=== PATIENT | female | born 1995 | race Hispanic/Latino ===

== ENCOUNTER 2022-02-01 11:18 | Outpatient (CLI) | payer BC ==
[2022-02-02 16:08] LABS: SARS-CoV-2 PCR by NAA Not Detected (NotDetected)
== END 2022-02-01 11:19 | disposition home or self-care (01) ==
LOC: CSHLAB 11:18
PROVIDERS: ATTEND Student in an Organized Health Care Education/Training Program
DX: Z20.822 Contact with and (suspected) exposure to COVID-19 (principal)
CPT/HCPCS: U0003; U0005

== ENCOUNTER 2022-02-05 05:55 | Inpatient (IN) | payer BC ==
[2022-02-05] MEDS ORDERED: NS w/ Oxytocin 30 units 500 ML IV SCH ×2 (05:58)
[2022-02-05] MEDS ORDERED: Butorphanol Tartrate 1 MG/ML VIAL SLOW IVP PRN (05:58)
[2022-02-05] MEDS ORDERED: HYDROcodone/Acetaminophen 5/325 mg Tablet PO PRN ×3 (05:58→15:10)
[2022-02-05] MEDS ORDERED: Lidocaine 1% (PF) 30 ML VIAL SC PRN (05:58)
[2022-02-05] MEDS ORDERED: Acetaminophen 500 MG TAB PO PRN (05:58)
[2022-02-05] MEDS ORDERED: Methylergonovine 0.2 MG/ML VIAL IM PRN (05:58)
[2022-02-05] MEDS ORDERED: Carboprost 250 MCG/ML AMP IM PRN (05:58)
[2022-02-05] MEDS ORDERED: Misoprostol 200 MCG TAB PR PRN (05:58)
[2022-02-05] MEDS ORDERED: Promethazine HCl 25 MG/ML VIAL IM PRN ×3 (05:58→15:10)
[2022-02-05] MEDS ORDERED: Ondansetron PF 4 MG/2 ML Vial IVP PRN ×3 (05:58→15:10)
[2022-02-05] MEDS ORDERED: Ibuprofen 800 MG TAB PO PRN (05:58)
[2022-02-05] MEDS ORDERED: Diphenoxylate HCl/Atropine Tablet PO PRN (05:58)
[2022-02-05] MEDS ORDERED: hydrALAZINE 20 MG/ML VIAL SLOW IVP PRN ×2 (05:58→15:10)
[2022-02-05 06:35] VITALS: BMI 35.1
[2022-02-05 07:12] LABS: Hemoglobin 12.2 g/dL (12.0-15.5); Mean Corpuscular HGB CONC 32.9 g/dL (32.0-36.0); Mean Corpuscular Hemoglobin 27.9 pg (27.0-33.0); Mean Corpuscular Volume 84.9 fl (81.6-98.3); Mean Platelet Volume 10.9 fl (7.4-10.4); Platelet Count 248 10x3/uL (150-450); RBC Distribution Width 19.9 % (11.5-14.5); Red Blood Cell (RBC) Count 4.37 10x6/uL (3.90-5.03); White Blood Cell (WBC) Count 10.2 10x3/uL (3.5-10.5)
[2022-02-05 07:55] LABS: Syphilis Antibody Nonreactive (Nonreactive); Syphilis Antibody Index 0.05 S/CO (<1.00 Non-Reactive)
[2022-02-05 07:57] LABS: Hep B Surf Ag Non-Reactive S/CO (NonReactive)
[2022-02-05 07:58] LABS: HBSAg Index 0.13 S/CO (0-0.99)
[2022-02-05] MEDS ORDERED: Fentanyl 2 mcg/Bup 0.1% Cadd 100 ML ONE (09:49)
[2022-02-05] MEDS ORDERED: Acetaminophen 325 MG TAB PO PRN (10:25)
[2022-02-05] MEDS ORDERED: ePHEDrine Sulfate 50 MG/10 ML VIAL SLOW IVP PRN (10:25)
[2022-02-05] MEDS ORDERED: Moisturizing Cream (Eucerin) 113 GM JAR TOP PRN (10:25)
[2022-02-05] MEDS ORDERED: diphenhydrAMINE 50 MG/ML VIAL IVP PRN (10:25)
[2022-02-05] MEDS ORDERED: Naloxone HCl 0.4 mg/ml Vial IVP PRN ×2 (10:25)
[2022-02-05] MEDS ORDERED: Lactated Ringer's 500 ML IV PRN (10:25)
[2022-02-05] MEDS ORDERED: Fentanyl 2 mcg/Bupivacaine 0.1% Cassette 100 ML EPIDURAL SCH (10:30)
[2022-02-05] MEDS ORDERED: Communication Order-Pharmacy FS SCH (10:30)
[2022-02-05] MEDS ORDERED: Boostrix 0.5 ML (Tdap) VIAL IM ONE (15:10)
[2022-02-05] MEDS ORDERED: Milk Of Magnesia 30 ML UDCUP PO PRN (15:10)
[2022-02-05] MEDS ORDERED: Benzocaine-Menthol 82.5 ML CAN TOP PRN (15:10)
[2022-02-05] MEDS ORDERED: Preparation H Ointment 28 GM TUBE PR PRN (15:10)
[2022-02-05] MEDS ORDERED: diphenhydrAMINE 25 MG CAP PO PRN (15:10)
[2022-02-05] MEDS ORDERED: Lanolin Ointment 7 GM TUBE TOP PRN (15:10)
[2022-02-05] MEDS ORDERED: Bisacodyl 10 MG SUPP PR PRN (15:10)
[2022-02-05] MEDS: Ibuprofen 800 MG TAB PO SCH (16:53)
[2022-02-05] MEDS: Lactated Ringer's 1,000 ML IV SCH ×2 (18:09→20:11)
[2022-02-05] MEDS: Ferrous Sulfate 325 MG TAB PO SCH (18:10)
[2022-02-05] MEDS: Docusate 100 MG CAP PO SCH (20:10)
[2022-02-06] MEDS: Ibuprofen 800 MG TAB PO SCH ×2 (00:26→08:54)
[2022-02-06] MEDS: Docusate 100 MG CAP PO SCH (08:54)
[2022-02-06] MEDS ORDERED: Prenatal Vitamin 1 TAB PO SCH (09:00)
[2022-02-06] MEDS: Lactated Ringer's 1,000 ML IV SCH ×2 (09:09→14:09)
[2022-02-06] MEDS: Ferrous Sulfate 325 MG TAB PO SCH (09:10)
[2022-02-06 12:33] VITALS: BP 117/87; TEMP 99.4
== END 2022-02-06 16:20 | disposition home or self-care (01) | DRG 807 ==
LOC: CSHLD 05:55 → CSHPP 17:00
PROVIDERS: ADMIT Student in an Organized Health Care Education/Training Program; ATTEND Student in an Organized Health Care Education/Training Program
PROC: 10E0XZZ Delivery of Products of Conception, External Approach (ICD-10-PCS; principal; 2022-02-05)
PROC: 10907ZC Drainage of Amniotic Fluid, Therapeutic from Products of Conception, Via Natural or Artificial Opening (ICD-10-PCS; 2022-02-05)
PROC: 0HQ9XZZ Repair Perineum Skin, External Approach (ICD-10-PCS; 2022-02-05)
DX: O32.8XX0 Maternal care for other malpresentation of fetus, not applicable or unspecified (principal); Z37.0 Single live birth; O70.0 First degree perineal laceration during delivery; Z3A.39 39 weeks gestation of pregnancy
CPT/HCPCS: 51702; 85027; 86780; 86850; 86900; 86901; 87340; J2590

== ENCOUNTER 2023-02-06 07:54 | Emergency (ER) | payer BC ==
[2023-02-06] MEDS ORDERED: Ondansetron PF 4 MG/2 ML Vial ONE (08:30)
[2023-02-06 08:40] LABS: #Monocytes 0.7 10x3/uL (0.0-1.1); #Neutrophils 8.6 10x3/uL (1.5-8.4); %Basophils 0.3 % (0.0-2.0); %Eosinophils 0.2 % (0.0-6.0); %Lymphocytes 10.1 % (18.0-47.0); %Monocytes 6.9 % (0.0-10.0); %Neutrophils 81.9 % (40.0-75.0); Hemoglobin 13.7 g/dL (12.0-15.5); Mean Corpuscular HGB CONC 34.5 g/dL (32.0-36.0); Mean Corpuscular Hemoglobin 29.7 pg (27.0-33.0); Mean Corpuscular Volume 86.1 fl (81.6-98.3); Mean Platelet Volume 9.9 fl (7.4-10.4); Platelet Count 311 10x3/uL (150-450); RBC Distribution Width 13.5 % (11.5-14.5); Red Blood Cell (RBC) Count 4.61 10x6/uL (3.90-5.03); White Blood Cell (WBC) Count 10.5 10x3/uL (3.5-10.5)
[2023-02-06 08:51] LABS: ALT (SGPT) 13 U/L (8-55); AST (SGOT) 21 U/L (5-34); Alkaline Phosphatase 60 U/L (40-110); Anion Gap 15 mmol/L (10-20); BUN (Urea Nitrogen) 6 mg/dL (7.0-18.7); Bilirubin, Total 0.2 mg/dL (0.2-1.2); Calc. Creatinine Clearance 0 mL/min (70-130); Calcium 9.1 mg/dL (7.8-10.44); Carbon Dioxide 19 mmol/L (22-29); Chloride 105 mmol/L (98-107); Estimated GFR 126; Globulin 3.6 g/dL (2.4-3.5); Glucose 100 mg/dL (70-105); Lipase 11 U/L (8-78); Potassium 3.7 mmol/L (3.5-5.1); Protein, Total 7.6 g/dL (6.0-8.3); Sodium 135 mmol/L (136-145)
== END 2023-02-06 11:34 | disposition home or self-care (01) ==
LOC: CSHERS 07:54
DX: A09 Infectious gastroenteritis and colitis, unspecified (principal)
CPT/HCPCS: 36415; 80053; 83690; 85025; 96361; 96374; J2405

== ENCOUNTER 2023-07-03 08:46 | Day surgery (SDC) | payer BC ==
[2023-07-03 09:51] LABS: Fetal Membranes Rupture No Membranes Rupture (No Rupture)
== END 2023-07-03 10:46 | disposition home or self-care (01) ==
LOC: CSHLD/OP 08:46
PROVIDERS: ATTEND Student in an Organized Health Care Education/Training Program
DX: O41.93X0 Disorder of amniotic fluid and membranes, unspecified, third trimester, not applicable or unspecified (principal); O99.283 Endocrine, nutritional and metabolic diseases complicating pregnancy, third trimester; E03.9 Hypothyroidism, unspecified; Z3A.35 35 weeks gestation of pregnancy; Z79.890 Hormone replacement therapy; Z90.89 Acquired absence of other organs
CPT/HCPCS: 84112; 87480; 87510; 87660; 99284

== ENCOUNTER 2023-07-21 01:02 | Day surgery (SDC) | payer BC ==
[2023-07-21 01:26] VITALS: BMI 37.5
[2023-07-21] MEDS ORDERED: hydrALAZINE 20 MG/ML VIAL SLOW IVP PRN (02:00)
[2023-07-23] MEDS ORDERED: hydrALAZINE 20 MG/ML VIAL SLOW IVP PRN (22:35)
== END 2023-07-21 04:11 | disposition home or self-care (01) ==
LOC: CSHLD/OP 01:02
PROVIDERS: ATTEND Student in an Organized Health Care Education/Training Program
DX: O47.1 False labor at or after 37 completed weeks of gestation (principal); O99.283 Endocrine, nutritional and metabolic diseases complicating pregnancy, third trimester; E03.9 Hypothyroidism, unspecified; Z3A.38 38 weeks gestation of pregnancy; Z79.890 Hormone replacement therapy; Z90.89 Acquired absence of other organs
CPT/HCPCS: 99283